=== PATIENT | male | born 1970 | race Caucasian/White ===

== ENCOUNTER 2021-02-20 18:06 | Inpatient (IN) ==
[2021-02-20] MEDS ORDERED: Tetan/Diph/Pertus SYR(Tdap) 0.5 ML SYR(BOOSTRIX) use SYR contains LATEX IM ONE (19:26)
[2021-02-20] MEDS ORDERED: diPHENhydraMINE 25 mg TAB PO PRN (23:45)
[2021-02-20] MEDS ORDERED: Morphine 10 MG/ML VIAL (1 ml) IV PRN (23:45)
[2021-02-21 02:50] LABS: ABS Basophils 0.1 10^3/ul (0-0.2); ABS Eosinophils 0.1 10^3/ul (0-0.6); ABS Monocytes 0.8 10^3/ul (0-0.8); ABS Neutrophils 4.4 10^3/ul (1.5-7.7); Eosinophil % 1.3 %; Hematocrit 39 % (42-52); Hemoglobin 13.8 g/dL (14.0-18.0); Lymphocyte % 16.3 %; Mean Corpuscular HGB Conc 35 g/dL (31-36); Mean Corpuscular Hemoglobin 30 pg (27-31); Mean Corpuscular Volume 87 fL (80-94); Mean Platelet Volume 7.7 fL (7.4-10.4); Nucleated Red Blood Cells % 0.1; Platelet Count 212 10^3/uL (150-450); Red Blood Count 4.52 10^6 /uL (4.18-5.48); Red Cell Distribution Width 14 % (10-15); White Blood Count 6.3 10^3/uL (3.5-10.8)
[2021-02-21 02:55] LABS: Activated Partial Thrombo Time 29.1 seconds (26.0-38.0); INR 1.11 (0.86-1.15)
[2021-02-21] MEDS: NS 0.9% 1000 ml BAG 1,000 ML IV SCH ×2 (03:40→16:11)
[2021-02-21 04:15] LABS: Rapid COVID-19 Molecular Undetected (Undetected)
[2021-02-21] MEDS ORDERED: Flu vaccine *QUAD* 2021-22* 0.5 ML SYRINGE IM ONE (09:00)
[2021-02-21 11:17] LABS: Potassium 3.9 mmol/L (3.5-5.0)
[2021-02-21] MEDS: Heparin 5000 UNITS/ML 1 mL VIAL SUBCUT SCH ×2 (15:51→20:05)
[2021-02-22] MEDS: NS 0.9% 1000 ml BAG 1,000 ML IV SCH (02:07)
[2021-02-22] MEDS ORDERED: ceFAZolin 2 GM in NS PREMIX 2 GM/100 ML BAG IVPB ONE (13:21)
[2021-02-22] MEDS ORDERED: Rocuronium 50 mg VIAL 10 mg/ml 5 ml VIAL (50 mg) ONE ×2 (14:02→14:05)
[2021-02-22] MEDS ORDERED: Lidocaine 2% PF 5 ML VIAL ONE (14:08)
[2021-02-22] MEDS ORDERED: fentaNYL 250 mcg/5 ml 50 MCG/ML 5 ml VIAL (250 MCG) ONE (14:08)
[2021-02-22] MEDS ORDERED: Propofol 10 MG/ML 20 ML BTL ONE (14:08)
[2021-02-22] MEDS ORDERED: Dexamethasone IV 4 MG/ML VIAL 1 ml VIAL ONE (14:08)
[2021-02-22] MEDS ORDERED: Midazolam 2 mg/2 ml VIAL 1 mg/ml 2 ml VIAL (2 mg) ONE (14:08)
[2021-02-22] MEDS ORDERED: Phenylephrine 40 mcg/mL 10mL (400mcg) SYRINGE ONE (15:14)
[2021-02-22] MEDS ORDERED: Ondansetron 4 mg VIAL 2 MG/ML 2 ml VIAL ONE (15:42)
[2021-02-22] MEDS ORDERED: HYDROmorphone 1 MG/1 ML SYRINGE ONE (15:43)
[2021-02-22] MEDS ORDERED: fentaNYL 100 mcg/2 ml 50 MCG/ML VIAL ONE ×3 (17:21→19:39)
[2021-02-22] MEDS ORDERED: Naloxone 0.4 mg VIAL 0.4 mg/ml 1 ml VIAL IV PRN (18:00)
[2021-02-22] MEDS ORDERED: DiMENhydriNATE IV 50 mg/ml 1 ml VIAL IV PUSH PRN (18:00)
[2021-02-22] MEDS ORDERED: Ondansetron 4 mg VIAL 2 MG/ML 2 ml VIAL IV PRN (18:00)
[2021-02-22] MEDS: fentaNYL 100 mcg/2 ml 50 MCG/ML VIAL IV PRN ×2 (19:39→19:47)
[2021-02-23] MEDS: ceFAZolin 1 GM Q8H (ADVAN) IVPB SCH ×4 (00:50→23:25)
[2021-02-23] MEDS: NS 0.9% 1000 ml BAG 1,000 ML IV SCH (06:19)
[2021-02-23] MEDS ORDERED: Flu vaccine *QUAD* 2021-22* 0.5 ML SYRINGE IM ONE (09:00)
[2021-02-23] MEDS: Enoxaparin 40 MG/0.4 ML SYR SUBCUT SCH (12:04)
[2021-02-23] MEDS: oxyCODONE/Acetamin 5/325 mg TAB PO PRN ×2 (12:16→18:16)
[2021-02-23] MEDS ORDERED: Magnesium Hydroxide LIQ 30 ML UDC PO PRN (17:17)
[2021-02-23] MEDS ORDERED: Polyethylene Glycol 3350 17 GM PACKET PO PRN (17:17)
[2021-02-24] MEDS: ceFAZolin 1 GM Q8H (ADVAN) IVPB SCH ×3 (07:25→23:22)
[2021-02-24] MEDS: Enoxaparin 40 MG/0.4 ML SYR SUBCUT SCH (11:26)
[2021-02-24] MEDS: oxyCODONE/Acetamin 5/325 mg TAB PO PRN (13:56)
[2021-02-25] MEDS: ceFAZolin 1 GM Q8H (ADVAN) IVPB SCH ×3 (08:49→23:22)
[2021-02-25] MEDS: Magnesium Hydroxide LIQ 30 ML UDC PO SCH ×2 (08:54→19:45)
[2021-02-25] MEDS: Polyethylene Glycol 3350 17 GM PACKET PO SCH (08:55)
[2021-02-25] MEDS: Enoxaparin 40 MG/0.4 ML SYR SUBCUT SCH (12:27)
[2021-02-25] MEDS: oxyCODONE/Acetamin 5/325 mg TAB PO PRN (19:46)
[2021-02-26] MEDS: Polyethylene Glycol 3350 17 GM PACKET PO SCH (08:18)
[2021-02-26] MEDS: Magnesium Hydroxide LIQ 30 ML UDC PO SCH ×2 (08:18→19:47)
[2021-02-26] MEDS: ceFAZolin 1 GM Q8H (ADVAN) IVPB SCH ×3 (08:18→23:05)
[2021-02-26] MEDS: Enoxaparin 40 MG/0.4 ML SYR SUBCUT SCH (12:34)
[2021-02-27] MEDS: ceFAZolin 1 GM Q8H (ADVAN) IVPB SCH ×3 (08:50→23:58)
[2021-02-27] MEDS: Magnesium Hydroxide LIQ 30 ML UDC PO SCH ×2 (08:55→20:26)
[2021-02-27] MEDS: Polyethylene Glycol 3350 17 GM PACKET PO SCH (08:55)
[2021-02-27] MEDS: Enoxaparin 40 MG/0.4 ML SYR SUBCUT SCH (13:49)
[2021-02-28] MEDS: ceFAZolin 1 GM Q8H (ADVAN) IVPB SCH ×3 (07:45→23:35)
[2021-02-28] MEDS: Polyethylene Glycol 3350 17 GM PACKET PO SCH (07:50)
[2021-02-28] MEDS: Magnesium Hydroxide LIQ 30 ML UDC PO SCH ×2 (07:50→21:09)
[2021-02-28] MEDS: Enoxaparin 40 MG/0.4 ML SYR SUBCUT SCH (11:37)
[2021-03-01] MEDS: Polyethylene Glycol 3350 17 GM PACKET PO SCH (07:36)
[2021-03-01] MEDS: ceFAZolin 1 GM Q8H (ADVAN) IVPB SCH ×3 (07:36→23:34)
[2021-03-01] MEDS: Magnesium Hydroxide LIQ 30 ML UDC PO SCH ×2 (07:36→21:06)
[2021-03-01] MEDS: Enoxaparin 40 MG/0.4 ML SYR SUBCUT SCH (12:28)
[2021-03-02] MEDS: ceFAZolin 1 GM Q8H (ADVAN) IVPB SCH ×3 (07:51→23:50)
[2021-03-02] MEDS: Magnesium Hydroxide LIQ 30 ML UDC PO SCH ×2 (07:52→19:36)
[2021-03-02] MEDS: Polyethylene Glycol 3350 17 GM PACKET PO SCH (08:10)
[2021-03-02] MEDS: Enoxaparin 40 MG/0.4 ML SYR SUBCUT SCH (12:42)
[2021-03-03] MEDS: Magnesium Hydroxide LIQ 30 ML UDC PO SCH ×2 (07:19→20:41)
[2021-03-03] MEDS: ceFAZolin 1 GM Q8H (ADVAN) IVPB SCH ×3 (07:41→23:04)
[2021-03-03 09:40] LABS: Mean Platelet Volume 7.8 fL (7.4-10.4); Platelet Count 309 10^3/uL (150-450)
[2021-03-03] MEDS: Polyethylene Glycol 3350 17 GM PACKET PO SCH (09:47)
[2021-03-03 09:57] LABS: eGFR CKD-EPI 111.3 (>60)
[2021-03-03] MEDS: Enoxaparin 40 MG/0.4 ML SYR SUBCUT SCH (10:25)
[2021-03-04] MEDS: ceFAZolin 1 GM Q8H (ADVAN) IVPB SCH ×3 (07:00→23:24)
[2021-03-04] MEDS: Polyethylene Glycol 3350 17 GM PACKET PO SCH (08:38)
[2021-03-04] MEDS: Magnesium Hydroxide LIQ 30 ML UDC PO SCH ×2 (08:38→19:30)
[2021-03-04] MEDS: Enoxaparin 40 MG/0.4 ML SYR SUBCUT SCH (11:19)
[2021-03-05] MEDS: ceFAZolin 1 GM Q8H (ADVAN) IVPB SCH ×3 (07:33→23:17)
[2021-03-05] MEDS: Magnesium Hydroxide LIQ 30 ML UDC PO SCH ×2 (09:45→20:38)
[2021-03-05] MEDS: Polyethylene Glycol 3350 17 GM PACKET PO SCH (09:45)
[2021-03-05] MEDS: Enoxaparin 40 MG/0.4 ML SYR SUBCUT SCH (12:02)
[2021-03-06] MEDS: Polyethylene Glycol 3350 17 GM PACKET PO SCH (08:08)
[2021-03-06] MEDS: Magnesium Hydroxide LIQ 30 ML UDC PO SCH ×2 (08:08→20:47)
[2021-03-06] MEDS: ceFAZolin 1 GM Q8H (ADVAN) IVPB SCH (08:10)
[2021-03-06] MEDS: Enoxaparin 40 MG/0.4 ML SYR SUBCUT SCH (11:55)
[2021-03-07] MEDS: Polyethylene Glycol 3350 17 GM PACKET PO SCH (07:37)
[2021-03-07] MEDS: Magnesium Hydroxide LIQ 30 ML UDC PO SCH ×2 (07:37→20:31)
[2021-03-07] MEDS: Enoxaparin 40 MG/0.4 ML SYR SUBCUT SCH (11:54)
[2021-03-07 13:48] LABS: Calcium 9.7 mg/dL (8.6-10.3); Potassium 4.2 mmol/L (3.5-5.0); eGFR CKD-EPI 113.2 (>60)
[2021-03-08 05:50] LABS: Calcium 9.7 mg/dL (8.6-10.3); eGFR CKD-EPI 111.3 (>60)
[2021-03-08] MEDS: Polyethylene Glycol 3350 17 GM PACKET PO SCH (08:37)
[2021-03-08] MEDS: Magnesium Hydroxide LIQ 30 ML UDC PO SCH ×2 (08:37→21:49)
[2021-03-08] MEDS: Enoxaparin 40 MG/0.4 ML SYR SUBCUT SCH (11:33)
[2021-03-09] MEDS: Magnesium Hydroxide LIQ 30 ML UDC PO SCH ×2 (08:03→20:29)
[2021-03-09] MEDS: Polyethylene Glycol 3350 17 GM PACKET PO SCH (08:03)
[2021-03-09] MEDS ORDERED: COVID-19 VACCINE, MRNA(PFIZER)/PF 30 MCG/0.3 ML IM ONE (12:00)
[2021-03-09] MEDS: Enoxaparin 40 MG/0.4 ML SYR SUBCUT SCH (12:34)
[2021-03-10] MEDS: Magnesium Hydroxide LIQ 30 ML UDC PO SCH ×2 (08:08→20:27)
[2021-03-10] MEDS: Polyethylene Glycol 3350 17 GM PACKET PO SCH (08:08)
[2021-03-10] MEDS: Enoxaparin 40 MG/0.4 ML SYR SUBCUT SCH (11:55)
[2021-03-11] MEDS: Polyethylene Glycol 3350 17 GM PACKET PO SCH (10:29)
[2021-03-11] MEDS: Magnesium Hydroxide LIQ 30 ML UDC PO SCH ×2 (10:29→20:01)
[2021-03-11] MEDS ORDERED: COVID-19 VACCINE, MRNA(PFIZER)/PF 30 MCG/0.3 ML IM ONE (12:00)
[2021-03-11] MEDS: Enoxaparin 40 MG/0.4 ML SYR SUBCUT SCH (13:12)
[2021-03-12] MEDS: Polyethylene Glycol 3350 17 GM PACKET PO SCH (09:52)
[2021-03-12] MEDS: Magnesium Hydroxide LIQ 30 ML UDC PO SCH (09:52)
[2021-03-12 12:19] VITALS: BP 126/79
[2021-03-12] MEDS: Enoxaparin 40 MG/0.4 ML SYR SUBCUT SCH (12:36)
== END 2021-03-12 14:13 | disposition swing bed (61) | DRG 313 ==
LOC: SSU 18:06 → ED 18:06 → OBSVTOIN 23:45 → SSU 02-21 03:15
PROVIDERS: ADMIT Orthopaedic Surgery; ATTEND Orthopaedic Surgery

== ENCOUNTER 2021-03-12 14:41 | Inpatient (IN) ==
[2021-03-12] MEDS ORDERED: Polyethylene Glycol 3350 17 GM PACKET PO PRN (15:03)
[2021-03-12] MEDS ORDERED: diPHENhydraMINE 25 mg TAB PO PRN (15:03)
[2021-03-12] MEDS: Magnesium Hydroxide LIQ 30 ML UDC PO SCH (22:30)
[2021-03-13] MEDS: Magnesium Hydroxide LIQ 30 ML UDC PO SCH ×2 (09:04→21:54)
[2021-03-13] MEDS: Enoxaparin 40 MG/0.4 ML SYR SUBCUT SCH (11:25)
[2021-03-14] MEDS: Magnesium Hydroxide LIQ 30 ML UDC PO SCH ×2 (10:12→20:38)
[2021-03-14] MEDS: Enoxaparin 40 MG/0.4 ML SYR SUBCUT SCH (11:48)
[2021-03-15] MEDS: Magnesium Hydroxide LIQ 30 ML UDC PO SCH ×2 (08:28→20:17)
[2021-03-15] MEDS: Enoxaparin 40 MG/0.4 ML SYR SUBCUT SCH (12:51)
[2021-03-16 05:58] LABS: Hematocrit 38 % (42-52); Hemoglobin 13.4 g/dL (14.0-18.0); Platelet Count 204 10^3/uL (150-450)
[2021-03-16 06:22] LABS: eGFR CKD-EPI 111.3 (>60)
[2021-03-16] MEDS: Magnesium Hydroxide LIQ 30 ML UDC PO SCH ×2 (09:55→20:54)
[2021-03-16] MEDS: Enoxaparin 40 MG/0.4 ML SYR SUBCUT SCH (13:12)
[2021-03-17] MEDS: Magnesium Hydroxide LIQ 30 ML UDC PO SCH ×2 (09:46→21:46)
[2021-03-17] MEDS: Enoxaparin 40 MG/0.4 ML SYR SUBCUT SCH (12:28)
[2021-03-18] MEDS: Magnesium Hydroxide LIQ 30 ML UDC PO SCH ×2 (09:13→20:49)
[2021-03-18] MEDS: Enoxaparin 40 MG/0.4 ML SYR SUBCUT SCH (12:50)
[2021-03-19] MEDS: Magnesium Hydroxide LIQ 30 ML UDC PO SCH ×2 (08:20→20:58)
[2021-03-19] MEDS: Enoxaparin 40 MG/0.4 ML SYR SUBCUT SCH (12:20)
[2021-03-20] MEDS: Magnesium Hydroxide LIQ 30 ML UDC PO SCH ×2 (08:43→21:06)
[2021-03-20] MEDS: Enoxaparin 40 MG/0.4 ML SYR SUBCUT SCH (12:05)
[2021-03-21] MEDS: Magnesium Hydroxide LIQ 30 ML UDC PO SCH ×2 (08:48→19:40)
[2021-03-21] MEDS: Enoxaparin 40 MG/0.4 ML SYR SUBCUT SCH (12:13)
[2021-03-22] MEDS: Magnesium Hydroxide LIQ 30 ML UDC PO SCH ×2 (09:35→23:44)
[2021-03-22] MEDS: Enoxaparin 40 MG/0.4 ML SYR SUBCUT SCH (13:04)
[2021-03-23] MEDS: Magnesium Hydroxide LIQ 30 ML UDC PO SCH ×2 (09:11→20:00)
[2021-03-23] MEDS: Enoxaparin 40 MG/0.4 ML SYR SUBCUT SCH (14:46)
[2021-03-24 05:51] LABS: Hematocrit 38 % (42-52); Hemoglobin 13.4 g/dL (14.0-18.0); Platelet Count 168 10^3/uL (150-450)
[2021-03-24] MEDS: Magnesium Hydroxide LIQ 30 ML UDC PO SCH ×2 (09:00→20:58)
[2021-03-24] MEDS: Enoxaparin 40 MG/0.4 ML SYR SUBCUT SCH (13:43)
[2021-03-25] MEDS: Magnesium Hydroxide LIQ 30 ML UDC PO SCH ×2 (07:23→20:43)
[2021-03-25] MEDS: Enoxaparin 40 MG/0.4 ML SYR SUBCUT SCH (12:17)
[2021-03-26] MEDS: Enoxaparin 30 MG/0.3 ML SYR SUBCUT SCH (08:34)
[2021-03-26] MEDS: Magnesium Hydroxide LIQ 30 ML UDC PO SCH ×2 (10:59→22:30)
[2021-03-27] MEDS: Enoxaparin 30 MG/0.3 ML SYR SUBCUT SCH (07:42)
[2021-03-27] MEDS: Magnesium Hydroxide LIQ 30 ML UDC PO SCH ×2 (07:50→22:23)
[2021-03-28 07:18] VITALS: BP 120/82
[2021-03-28] MEDS: Enoxaparin 30 MG/0.3 ML SYR SUBCUT SCH (07:50)
[2021-03-28] MEDS: Magnesium Hydroxide LIQ 30 ML UDC PO SCH (07:50)
[2021-03-28 14:37] LABS: Rapid COVID-19 Molecular Undetected (Undetected)
== END 2021-03-28 15:19 | DRG 860 ==
LOC: SSU 14:41
PROVIDERS: ADMIT Orthopaedic Surgery; ATTEND Orthopaedic Surgery